=== PATIENT | female | born 1955 | race Caucasian/White ===

== ENCOUNTER → 2017-07-04 | Outpatient (CLI) | payer OTHER | LOC: GMAB 19:31 | PROVIDERS: ATTEND Family Medicine | DX: N39.0 Urinary tract infection, site not specified (principal) ==

== ENCOUNTER → 2017-07-13 | Outpatient (CLI) | payer OTHER | END | disposition home or self-care (01) | LOC: GMAB 10:32 | PROVIDERS: ATTEND Family Medicine | DX: Z00.00 Encounter for general adult medical examination without abnormal findings (principal) ==

== ENCOUNTER → 2017-08-21 | Outpatient (CLI) | payer OTHER ==
--- NOTE | 2017-08-24 11:16 | MAM ---
EXAM DESCRIPTION: 3D Screening BILATERAL : Digital Mammography. CLINICAL HISTORY: 62 years Female SCREENING . No complaints. No family history of breast cancer. Postmenopausal. Has taken HRT 5 or more years ago. COMPARISON: Baseline study at this facility.. No prior reports available. TECHNIQUE: Bilateral CC and MLO projection full-field images, 3-D tomosynthesis digital mammographic technique. Also bilateral synthesized CC/ MLO full-field images. CAD not utilized. FINDINGS: The breast parenchymal density pattern is: Scattered areas of fibroglandular density. No skin thickening or nipple retraction bilateral solitary microcalcifications. Bilateral vascular calcifications. Well-defined well-circumscribed small smooth nodular densities in the bilateral breasts. Focal asymmetry in the anterior third of the left breast at the 300 clock position approximately 5 cm from the nipple. No focal, stellate mass or density, focal asymmetry , and no suspicious microcalcifications right breast. IMPRESSION: BI-RADS CATEGORY: 0 - INCOMPLETE- Need additional imaging evaluation. FOLLOW-UP: Recall for additional imagin-D tomosynthesis full field imaging LM projection left breast. Targeted ultrasound region of interest left breast.. Written communication concerning the IMPRESSION and Follow-up, will be mailed to the patient and referring health care provider. Electronically signed by: Renard Llanes MD 08/24/2017 11:15 AM ENVIRONMENTAL CONFLICT MANAGER
== END ==
LOC: MAMMO 16:30
PROVIDERS: ATTEND Family Medicine
DX: Z12.31 Encounter for screening mammogram for malignant neoplasm of breast (principal)
CPT/HCPCS: 77063; G0202

== ENCOUNTER → 2017-08-30 | Outpatient (CLI) | payer OTHER ==
--- NOTE | 2017-08-30 16:59 | MAM ---
EXAM DESCRIPTION: 3D Diagnostic, Left: Digital Mammography CLINICAL HISTORY: 62 yearsFemaleABNORMAL MAMMO focal asymmetry lateral anterior left breast.. COMPARISON: 3-D tomosynthesis bilateral screening mammographic examination 08/21/2017. Targeted left breast ultrasound following this examination.. Report from prior examination also reviewed. TECHNIQUE: Left breast LM projection full-field images, 3-D tomosynthesis digital mammographic technique. Also left breast synthesized LM full-field images. CAD not utilized. FINDINGS: The breast parenchymal density pattern is: Scattered areas of fibroglandular density. No skin thickening or nipple retraction focal asymmetry at the 300 clock position of the left breast approximately 3 cm from the nipple. No mass density. No abnormal micro-calcifications. ULTRASOUND: Scanning of the anterior left breast 300 clock position. Oval-shaped well-defined hypoechoic mass measuring 7.1 mm at the 300 clock position 4 cm from the nipple. Parallel orientation with mixed posterior features. Central echogenicity but not vascular. Consistent with a lymph node. Also heterogeneous tissues which are fatty and fibroglandular in the region of interest. No discrete solid mass or cyst. No overlying skin changes or parenchymal edema. No large calcifications. IMPRESSION: BI-RADS CATEGORY: 2 - BENIGN FINDINGS. FOLLOW UP: Return to routine digital bilateral screening, one year interval from August 2017. The FINDINGS and the follow-up plan were reviewed in person with the patient after the examination. Written communication explaining the IMPRESSION and follow-up will be mailed to the patient and referring care provider. According to the [employer], yearly mammograms are recommended starting at age 40 and continuing as long as a woman is in good health. Any breast change noted on a breast self-exam should be reported promptly to the patient's healthcare provider. Breast MRI is recommended for women with an approximately 20-25% or greater lifetime risk of breast cancer, including women with a strong family history of breast or ovarian cancer and women who have been treated for Hodgkin's disease. A negative mammographic report should not delay tissue diagnosis in patients with significant clinical history or physical findings. Extremely dense breast tissue limits the sensitivity of digital mammography. Electronically signed by: Renard Llanes MD 08/30/2017 4:57 PM BUCKSHOT SWAGE OPERATOR
--- NOTE | 2017-08-30 16:59 | US ---
EXAM DESCRIPTION: Breast,Left: Ultrasound CLINICAL HISTORY: 62 yearsFemaleABN MAMMO. Focal asymmetry in the left breast. COMPARISON: Digital 3-D tomosynthesis screening lateral breast 08/21/2017. 3-D diagnostic tomosynthesis left breast on this visit. TECHNIQUE: Transcutaneous scanning of the left breast utilizing two-dimensional and Doppler modes. Scanning performed by the proof machine operator supervisor and Dr. Llanes. FINDINGS: Scanning of the anterior left breast 300 clock position. Oval-shaped well-defined hypoechoic mass measuring 7.1 mm at the 300 clock position 4 cm from the nipple. Parallel orientation with mixed posterior features. Central echogenicity but not vascular. Consistent with a lymph node. Also heterogeneous tissues which are fatty and fibroglandular in the region of interest. No discrete solid mass or cyst. No overlying skin changes or parenchymal edema. No large calcifications. IMPRESSION: 1. Bi-Rads Category 2: Benign. 2. Please refer to left breast 3-D tomosynthesis diagnostic mammogram and report on this visit. The FINDINGS and the follow-up plan were reviewed in person with the patient after the examination. Written communication explaining the IMPRESSION and follow-up will be mailed to the patient and referring care provider. Electronically signed by: Renard Llanes MD 08/30/2017 4:58 PM BRICK BAKER
== END | disposition home or self-care (01) ==
LOC: MAMMO 10:23
PROVIDERS: ATTEND Family Medicine
DX: R92.8 Other abnormal and inconclusive findings on diagnostic imaging of breast (principal)
CPT/HCPCS: 76641; G0206; G0279

== ENCOUNTER → 2018-02-21 | Outpatient (CLI) | payer MEDICARE | LOC: GMATM 17:44 | PROVIDERS: ATTEND Nurse Practitioner Family | DX: N39.0 Urinary tract infection, site not specified (principal) ==

== ENCOUNTER → 2018-04-23 | Outpatient (CLI) | payer MEDICARE | LOC: GMAE 14:32 | PROVIDERS: ATTEND Family Medicine | DX: I10 Essential (primary) hypertension (principal) ==

== ENCOUNTER → 2019-08-06 | Outpatient (CLI) | payer MEDICARE | END | disposition home or self-care (01) | LOC: GMAE 10:41 | PROVIDERS: ATTEND Family Medicine | DX: I10 Essential (primary) hypertension (principal) ==

== ENCOUNTER → 2019-10-15 | Outpatient (CLI) | payer MEDICARE ==
--- NOTE | 2019-10-16 20:16 | MAM ---
EXAM DESCRIPTION: 3D Screening BILATERAL : Digital Mammography. CLINICAL HISTORY: 64 years Female ANNUAL SCREENING . No complaints. No personal or family history of breast cancer. Menarche age 12. Childbirth age 16. Menopause age 25. No HRT. Lifetime risk of developing breast cancer (Tyrer-Cuzick model)(%): 4.0. COMPARISON: Bilateral screening digital breast tomosynthesis August 2017 and diagnostic left breast tomosynthesis and directed ultrasound August 2017. TECHNIQUE: Bilateral CC and MLO projection full-field images, digital tomosynthesis mammographic technique. Bilateral digital 2-D full-field MLO images. CAD available for 2-D images. FINDINGS: The breast parenchymal density pattern is: Scattered areas of fibroglandular density. No skin thickening or nipple retraction. Skin mole marker right breast. Bilateral parenchymal microcalcifications. Vascular calcifications. No new focal, stellate mass or density, focal asymmetry , and no suspicious microcalcifications bilaterally. Stable mammograms compared to prior study. IMPRESSION: Benign exam. BIRAD CATEGORY: 2 BENIGN FINDINGS. RECOMMENDATIONS: FOLLOW UP: Routine digital bilateral mammographic screening, one year interval from September 2019 Written communication explaining the IMPRESSION and follow-up, will be mailed to the patient and referring health care provider. According to the [employer], yearly mammograms are recommended starting at age 40 and continuing as long as a woman is in good health. Any breast change noted on a breast self-exam should be reported promptly to the patient's healthcare provider. Breast MRI is recommended for women with an approximately 20-25% or greater lifetime risk of breast cancer, including women with a strong family history of breast or ovarian cancer and women who have been treated for Hodgkin's disease. A negative mammographic report should not delay tissue diagnosis in patients with significant clinical history or physical findings. Extremely dense breast tissue limits the sensitivity of digital mammography. Electronically signed by: Renard Llanes MD 10/16/2019 8:14 PM [id number]
== END ==
LOC: MAMMO 13:30
PROVIDERS: ATTEND Family Medicine
DX: Z12.31 Encounter for screening mammogram for malignant neoplasm of breast (principal)

== ENCOUNTER 2019-10-17 05:44 | Day surgery (SDC) | payer MEDICARE ==
[2019-10-17] MEDS ORDERED: PROPOFOL 200 MG/20 ML VIAL IV ONE (07:00)
[2019-10-17] MEDS ORDERED: LIDOCAINE 1% 10 ML VIAL INJ ONE (07:00)
[2019-10-17] MEDS ORDERED: LACTATED RINGERS 1,000 ML ONE (07:12)
[2019-10-17] MEDS ORDERED: KETAMINE HCL 100 MG/ML VIAL ONE (08:05)
[2019-10-17] MEDS ORDERED: MIDAZOLAM INJ 2 MG/2 ML VIAL ONE (08:05)
[2019-10-17] MEDS ORDERED: LEVALBUTEROL NEBS 1.25 MG/3 ML VIAL NEB STA (08:57)
[2019-10-17] MEDS: LEVALBUTEROL NEBS 1.25 MG/3 ML VIAL NEB ONE ×2 (09:00→09:13)
[2019-10-17] MEDS ORDERED: LEVALBUTEROL NEBS 1.25 MG/3 ML VIAL NEB ONE ×2 (09:07→09:11)
--- NOTE | 2019-10-17 09:27 | OP ---
DATE OF PROCEDURE: 10/17/19 PREOPERATIVE DIAGNOSIS: 1. First screening colonoscopy at age 64. POSTOPERATIVE DIAGNOSIS: 1. Colonic polyps times 2. PROCEDURE: 1. Colonoscopy with forceps excision of polyps times 2, one at 30 cm and one in proximal descending colon. SURGEON: J Luis Stone MD COMPLICATIONS: None. ESTIMATED BLOOD LOSS: None. CONDITION: Stable. PLAN: Discharge. INDICATION: As stated. PROCEDURE: In the lateral position, IV general sedation was given. Digital rectal exam was normal. The colonoscope was passed without difficulty. Upon insertion, there was a polyp identified approximately 30 cm on entry, possibly at 25 cm due to minor loop, but we excised this completely. It was probably 2.5 mm, possibly 3 mm. We completed advancement without difficulty to the cecum identified by the appendiceal orifice and ileocecal valve. The scope was then carefully withdrawn and only one more polyp was identified. Though difficult to see, it was definite and right at the proximal descending colon. This was completely excised. The remainder of the exam was normal. Air was aspirated. The patient was then taken to Recovery to be discharged. [id number]
[2019-10-17 11:20] VITALS: O2SAT 92
[2019-10-17 12:35] VITALS: BP 108/77; TEMP 99.1
== END 2019-10-17 11:00 | disposition home or self-care (01) ==
LOC: AMB 05:44
PROVIDERS: ATTEND Surgery
DX: Z12.11 Encounter for screening for malignant neoplasm of colon (principal); D12.6 Benign neoplasm of colon, unspecified; K63.5 Polyp of colon; I10 Essential (primary) hypertension; J45.909 Unspecified asthma, uncomplicated; E78.00 Pure hypercholesterolemia, unspecified; Z88.0 Allergy status to penicillin; Z88.1 Allergy status to other antibiotic agents; Z88.8 Allergy status to other drugs, medicaments and biological substances; Z90.710 Acquired absence of both cervix and uterus; Z79.899 Other long term (current) drug therapy
CPT/HCPCS: 00812; 45380; 88305; 94640; J2250; J3490; J7120; J7614

== ENCOUNTER → 2019-10-17 | Outpatient (CLI) | payer MEDICARE | LOC: GMAE 12:15 | PROVIDERS: ATTEND Family Medicine | DX: R50.9 Fever, unspecified (principal) ==

== ENCOUNTER → 2020-10-13 | Outpatient (CLI) | payer MEDICARE | LOC: GMAE 14:15 | PROVIDERS: ATTEND Family Medicine | DX: I10 Essential (primary) hypertension (principal) ==

== ENCOUNTER → 2020-10-20 | Outpatient (CLI) | payer MEDICARE ==
--- NOTE | 2020-10-20 21:14 | MAM ---
EXAM DESCRIPTION: 3D Screening BILATERAL : Digital Mammography. CLINICAL HISTORY: 65 years Female ANNUAL SCREENING . No complaints. No family history of breast cancer. Menarche age 13. Childbirth Age 16. Menopause age 25. HRT 5 or more years ago... Lifetime risk of developing breast cancer (Tyrer-Cuzick model)(%): 3.8. COMPARISON: Bilateral screening digital breast tomosynthesis September 2019 and August 2017. Diagnostic tomosynthesis and left breast ultrasound also August 2017 TECHNIQUE: Bilateral CC and MLO projection full-field images, digital tomosynthesis mammographic technique. Bilateral digital 2-D full-field MLO images. CAD available for 2-D images. FINDINGS: The breast parenchymal density pattern is: Scattered areas of fibroglandular density. Vascular calcifications. Solitary microcalcifications. Axillary nodes. No skin thickening or nipple retraction No new focal, stellate mass or density, focal asymmetry , and no suspicious microcalcifications bilaterally. Stable mammograms compared to prior study. IMPRESSION: Benign exam. BIRAD CATEGORY: 2 BENIGN FINDINGS. RECOMMENDATIONS: FOLLOW UP: Routine digital bilateral mammographic screening, one year interval from October 2020. Written communication explaining the IMPRESSION and follow-up, will be mailed to the patient and referring health care provider. According to the [employer], yearly mammograms are recommended starting at age 40 and continuing as long as a woman is in good health. Any breast change noted on a breast self-exam should be reported promptly to the patient's healthcare provider. Breast MRI is recommended for women with an approximately 20-25% or greater lifetime risk of breast cancer, including women with a strong family history of breast or ovarian cancer and women who have been treated for Hodgkin's disease. A negative mammographic report should not delay tissue diagnosis in patients with significant clinical history or physical findings. Extremely dense breast tissue limits the sensitivity of digital mammography. Electronically signed by: Renard Llanes MD 10/20/2020 9:13 PM STOPPER MAKER
== END ==
LOC: MAMMO 10-15 08:05
PROVIDERS: ATTEND Family Medicine
DX: Z12.31 Encounter for screening mammogram for malignant neoplasm of breast (principal)